=== PATIENT | male | born 1970 | race Caucasian/White ===

== ENCOUNTER → 2020-07-23 | Outpatient (CLI) | payer BC ==
--- NOTE | 2020-07-24 00:11 | MR ---
EXAMINATION TYPE: MR shoulder RT wo con DATE OF EXAM: 07/23/2020 no COMPARISON: None HISTORY: Right shoulder pain x 8 months, no trauma Multiplanar multiecho imaging of the right shoulder was performed with no contrast. Subscapularis tendon is intact. Biceps tendon is intact. The glenoid cristo appear intact. There is some spurring at the AC joint. There is mild impingement on the supraspinatus tendon. There is some edema and fluid around the AC joint. The supraspinatus tendon appears intact without retracti on. There is mild narrowing of the glenohumeral joint space. I see no bony destructive process. There is no evidence of a fracture. IMPRESSION: No evidence of rotator cuff tear. There is moderate spurring at the AC joint with subacromial impinge ment on the supraspinatus tendon. 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
== END | disposition home or self-care (01) ==
LOC: RADMRIMAIN 19:06
PROVIDERS: ATTEND Orthopaedic Surgery
DX: M19.011 Primary osteoarthritis, right shoulder (principal)

== ENCOUNTER → 2020-07-25 | Outpatient (CLI) | payer BC ==
--- NOTE | 2020-07-25 23:32 | MR ---
EXAMINATION TYPE: MR shoulder LT wo con DATE OF EXAM: 07/25/2020 COMPARISON: None HISTORY: Lt shoulder pain x8 months Multiplanar multiecho imaging of the left shoulder was performed without contrast. The biceps tendon is intact. Subscapularis tendon is intact. Glenoid cristo appear normal. I see no mehreen ny destructive process. The supraspinatus tendon shows no evidence of a full-thickness tear. Signal p attern is fairly normal. There is edema on both sides of the AC joint with spur formation. I see no fracture line. The scapula appears intact. Proximal humerus is intact. IMPRESSION: No evidence of rotator cuff tear. There is spurring and edema at the AC joint with some mild to moder ate subacromial impingement on the supraspinatus muscle.
== END | disposition home or self-care (01) ==
LOC: RADMRIMAIN 19:20
PROVIDERS: ATTEND Orthopaedic Surgery
DX: M25.711 Osteophyte, right shoulder (principal)

== ENCOUNTER → 2020-09-09 | Outpatient (CLI) | payer BC ==
[2020-09-10 01:38] LABS: Basophils # (A) 0.05 X 10*3/uL (0.00-0.10); Basophils % (A) 0.7 %; Eosinophils # (A) 0.11 X 10*3/uL (0.04-0.35); Eosinophils % (A) 1.5 %; HCT 41.2 % (39.6-50.0); HGB 14.5 g/dL (13.0-17.0); Lymphocytes # (A) 0.91 X 10*3/uL (0.90-5.00); Lymphocytes % (A) 12.5 %; MCH 30.1 pg (27.0-32.0); MCHC 35.2 g/dL (32.0-37.0); MCV 85.7 fL (80.0-97.0); Neutrophils # (A) 5.36 X 10*3/uL (1.80-7.70); Neutrophils % (A) 73.9 %; Platelet Count 263 X 10*3/uL (140-440); RBC 4.81 X 10*6/uL (4.40-5.60); WBC 7.26 X 10*3/uL (4.50-10.00)
[2020-09-10 04:21] LABS: Erythrocyte Sedimentation Rate 5 mm/Hr (0-15)
[2020-09-10 07:12] LABS: C Reactive Protein <0.4 mg/dL (0.0-0.8); Rheumatoid Factor, Qnt 10 IU/mL (0-15); Uric Acid 6.7 mg/dL (3.7-8.7)
[2020-09-10 09:19] LABS: Anti-DNA, DS unit <1.0 IU/mL; DNA Double-Stranded NEGATIVE (NEGATIVE)
[2020-09-10 09:24] LABS: HLA B27 POSITIVE
== END | disposition home or self-care (01) ==
LOC: LABWHC1 15:32
PROVIDERS: ATTEND Orthopaedic Surgery
DX: M25.50 Pain in unspecified joint (principal)
CPT/HCPCS: 36415; 84550; 85025; 85652; 86038; 86140; 86225; 86431; 86812